=== PATIENT | female | born 1980 | race African-American/Black ===

== ENCOUNTER 2017-02-19 17:25 | Emergency (ER) | payer MEDICARE, MEDICAID ==
[~2017-02-19] VITALS: Ht 160 cm; Wt 99.8 kg
[~2017-02-19 17:25] MED LIST: BUPR200T2; CITA-36; LAMO100T4; PALI6TAB3
[2017-02-19] MEDS ORDERED: SODIUM CHLORIDE 0.9% 1,000 ML IV ONE (18:45)
[2017-02-19] MEDS ORDERED: LORazepam 0.5 MG TAB PO ONE (21:15)
[2017-02-19 22:04] LABS: Basophils # (auto) 0 uL; Basophils % (auto) 0.3 % (0.0-2.0); DEFINITIVE VIEW TRANSMISSION; Eosinophils # (auto) 0.1 uL; Eosinophils % (auto) 0.8 % (0.0-7.0); Hematocrit 31.1 % (36.0-46.0); Hemoglobin 10.2 g/dL (12.2-16.2); Lymphocytes # (auto) 2.5 uL; Lymphocytes % (auto) 35.8 % (10.0-50.0); Mean Corpuscular Hgb Conc. 32.7 g/dL (32.0-36.0); Mean Corpuscular Volume 76.5 fL (80.0-100.0); Mean Platelet Volume 8.1 fL (7.4-10.4); Monocytes # (auto) 0.6 uL; Monocytes % (auto) 8.3 % (0.0-12.0); Neutrophils # (auto) 3.9 uL; Neutrophils % (auto) 54.8 % (37.0-80.0); Platelet Count (auto) 337 10^3/uL (140-450); Red Cell Distribution Width 16.9 % (11.6-16.0); White Blood Cell 7.1 10^3/uL (4.4-10.8)
[2017-02-19 22:21] LABS: Albumin 3.4 g/dL (3.4-5.0); BUN/Creatinine Ratio 9.3; Bilirubin, Total 0.5 mg/dL (0.2-1.0); Calcium 8.2 mg/dL (8.5-10.1); Total Protein 7.6 g/dL (6.4-8.2)
[2017-02-19] MEDS ORDERED: POTASSIUM CHL 10% (20 MEQ/15ML) ORAL SOLN PO ONE (22:45)
[2017-02-19] MEDS ORDERED: POTASSIUM CHL 20MEQ/100ML 100 ML IV ONE (23:45)
[2017-02-20] MEDS ORDERED: POTASSIUM CHL 10% (20 MEQ/15ML) ORAL SOLN PO ONE (01:00)
[2017-02-20 01:59] VITALS: BP 107/69
== END 2017-02-20 05:03 | disposition home or self-care (01) ==
LOC: EDBD 17:25 → EDSEX 17:25 → ER 17:28
DX: E87.6 Hypokalemia (principal); F31.9 Bipolar disorder, unspecified; R42 Dizziness and giddiness; Z79.899 Other long term (current) drug therapy
CPT/HCPCS: 36415; 70450; 80053; 80320; 84484; 84702; 85025; 93005; 94761; 96365; 96366; 99285; J3480; J7030

== ENCOUNTER 2017-02-22 12:03 | Observation (INO) | payer MEDICARE, MEDICAID ==
[~2017-02-22] VITALS: Ht 167.6 cm; Wt 99.8 kg
[2017-02-22 13:38] LABS: Urine Bilirubin Negative (Negative); Urine Blood 2+ /uL (Negative); Urine Color Yellow (Yellow); Urine Glucose Normal (Normal); Urine Ketone Negative (Negative); Urine Mucus FEW (None Seen); Urine Nitrite Negative (Negative); Urine RBC 9 /hpf (0 - 4); Urine Squamous Epithelial Cell FEW /hpf (<5); Urine pH 6.5 (5.0-8.0)
[2017-02-22] MEDS ORDERED: ALPRAZolam 0.5 MG TAB PO ONE (13:45)
[2017-02-22 15:19] LABS: Basophils # (auto) 0 uL; Basophils % (auto) 0.5 % (0.0-2.0); DEFINITIVE VIEW TRANSMISSION; Eosinophils # (auto) 0 uL; Eosinophils % (auto) 0.8 % (0.0-7.0); Hematocrit 31.5 % (36.0-46.0); Hemoglobin 10.5 g/dL (12.2-16.2); Lymphocytes % (auto) 36.4 % (10.0-50.0); Mean Corpuscular Hemoglobin 25.3 pg (28.0-32.0); Mean Corpuscular Hgb Conc. 33.3 g/dL (32.0-36.0); Mean Corpuscular Volume 75.8 fL (80.0-100.0); Mean Platelet Volume 8.6 fL (7.4-10.4); Monocytes # (auto) 0.4 uL; Monocytes % (auto) 6.4 % (0.0-12.0); Neutrophils # (auto) 3.1 uL; Neutrophils % (auto) 55.9 % (37.0-80.0); Platelet Count (auto) 302 10^3/uL (140-450); Red Cell Distribution Width 16.7 % (11.6-16.0); White Blood Cell 5.6 10^3/uL (4.4-10.8)
[2017-02-22 15:28] LABS: INR 1.06 (0.9-1.15); Partial Thromboplastin Time 25.4 sec (22.64-33.71); Prothrombin Time 11.6 sec (9.37-12.3)
[2017-02-22 15:32] LABS: Albumin 3.5 g/dL (3.4-5.0); BUN/Creatinine Ratio 10.8; Bilirubin, Total 0.4 mg/dL (0.2-1.0); Calcium 8.5 mg/dL (8.5-10.1); Magnesium 2.3 mg/dL (1.6-2.6); Potassium 3.2 mmol/L (3.5-5.1); Total Protein 7.7 g/dL (6.4-8.2)
[2017-02-22] MEDS ORDERED: POTASSIUM CHL 20 Meq TABLET PO ONE (16:45)
[2017-02-22 18:31] LABS: Platelet Estimate Adequate
[2017-02-22 18:32] LABS: Anisocytosis Moderate; Hypochromia Slight
[2017-02-22] MEDS ORDERED: ALUM & MAG HYDROX-SIMETH LIQ(MAALOX) 30 ML PO ONE (19:00)
[2017-02-22 19:34] VITALS: BP 108/70
== END 2017-02-22 19:39 | disposition short-term general hospital (02) | DRG 880 ==
LOC: EDBD 12:03 → ER 12:07 → OVERFLOW 12:25 → ER 19:36
PROVIDERS: ADMIT Family Medicine; ATTEND Family Medicine
DX: R45.851 Suicidal ideations (principal); N39.0 Urinary tract infection, site not specified; N30.00 Acute cystitis without hematuria; F32.9 Major depressive disorder, single episode, unspecified; F41.9 Anxiety disorder, unspecified; F31.9 Bipolar disorder, unspecified; F20.9 Schizophrenia, unspecified; E87.6 Hypokalemia
CPT/HCPCS: 36415; 71010; 80053; 80307; 81001; 81025; 83735; 85025; 85610; 85730; 99285; G0378

== ENCOUNTER 2017-03-18 12:25 | Emergency (ER) | payer MEDICARE, MEDICAID ==
[~2017-03-18] VITALS: Ht 167.6 cm; Wt 90.7 kg
[2017-03-18] MEDS ORDERED: AMMONIA 0.33 ML INHALANT IN ONE (12:31)
[2017-03-18 12:41] VITALS: BP 119/72
[2017-03-18] MEDS ORDERED: SODIUM CHLORIDE 0.9% 500 ML IV ONE (13:34)
[2017-03-18] MEDS ORDERED: ONDANSETRON HCL 4 MG/2 ML VIAL IV ONE (13:45)
[2017-03-18] MEDS ORDERED: KETOROLAC TROMETH 30 MG/ML 1ML VIAL IV ONE (13:45)
== END 2017-03-18 14:20 | disposition home or self-care (01) ==
LOC: EDBD 12:25 → ER 12:25
DX: R53.1 Weakness (principal); M19.90 Unspecified osteoarthritis, unspecified site; Z79.899 Other long term (current) drug therapy
CPT/HCPCS: 94761

== ENCOUNTER 2017-03-20 13:13 | Emergency (ER) | payer MEDICARE, MEDICAID ==
[~2017-03-20] VITALS: Ht 160 cm; Wt 99.8 kg
[2017-03-20 13:30] VITALS: BP 125/75
[2017-03-20] MEDS ORDERED: KETOROLAC TROMETH 60MG/2ML VIAL IM ONE (13:45)
== END 2017-03-20 16:00 | disposition home or self-care (01) ==
LOC: EDBD 13:13 → ER 13:13
DX: S16.1XXA Strain of muscle, fascia and tendon at neck level, initial encounter (principal); R51 Headache; M79.671 Pain in right foot; F20.9 Schizophrenia, unspecified; M19.90 Unspecified osteoarthritis, unspecified site; F31.9 Bipolar disorder, unspecified; V98.8XXA Other specified transport accidents, initial encounter; Y93.89 Activity, other specified; Y92.89 Other specified places as the place of occurrence of the external cause; Y99.8 Other external cause status
CPT/HCPCS: 70450; 72125; 73630; 96372; 99284; J1885

== ENCOUNTER 2017-04-06 22:05 | Emergency (ER) | payer MEDICARE, MEDICAID ==
[~2017-04-06] VITALS: Ht 165.1 cm; Wt 86.2 kg
[2017-04-06 22:47] LABS: Basophils # (auto) 0 uL; Basophils % (auto) 0.5 % (0.0-2.0); CONDITION Y; DEFINITIVE SEE PRINTOUT; Eosinophils # (auto) 0.1 uL; Eosinophils % (auto) 1.4 % (0.0-7.0); Hematocrit 33.6 % (36.0-46.0); Lymphocytes # (auto) 3.1 uL; Lymphocytes % (auto) 36.8 % (10.0-50.0); Mean Corpuscular Hemoglobin 25.2 pg (28.0-32.0); Mean Corpuscular Hgb Conc. 32.8 g/dL (32.0-36.0); Mean Corpuscular Volume 76.8 fL (80.0-100.0); Monocytes # (auto) 0.8 uL; Monocytes % (auto) 9.7 % (0.0-12.0); Neutrophils # (auto) 4.4 uL; Neutrophils % (auto) 51.6 % (37.0-80.0); Platelet Count (auto) 320 10^3/uL (140-450); Red Cell Distribution Width 18.5 % (11.6-16.0); White Blood Cell 8.4 10^3/uL (4.4-10.8)
[2017-04-06 23:08] LABS: Albumin 3.4 g/dL (3.4-5.0); Anion Gap 9 (5-15); Aspartate Aminotransferase 12 U/L (15-37); Blood Urea Nitrogen 7 mg/dL (7-18); Calcium 8.4 mg/dL (8.5-10.1); Carbon Dioxide 23 mmol/L (21-32); Chloride 111 mmol/L (98-107); GFR African American 123 mL/min; GFR Non-African American 102 mL/min; Glucose 89 mg/dL (74-106); Magnesium 1.9 mg/dL (1.6-2.6); Potassium 3.7 mmol/L (3.5-5.1); Salicylate < 1.7 mg/dL (2.8-20.0); Sodium 143 mmol/L (136-145)
[2017-04-06 23:10] LABS: Acetaminophen < 2.0 ug/mL (10-30)
[2017-04-06 23:13] LABS: Alkaline Phosphatase 82 U/L (45-117); Bilirubin, Total 0.2 mg/dL (0.2-1.0); Total Protein 7.6 g/dL (6.4-8.2)
[2017-04-07 01:00] VITALS: BP 118/74
== END 2017-04-07 02:41 | disposition home or self-care (01) ==
LOC: EDBD 22:05 → EDUNIT# 22:05 → EDSEX 22:05 → ER 22:05
DX: B37.3 Candidiasis of vulva and vagina (principal); M19.90 Unspecified osteoarthritis, unspecified site; Z79.899 Other long term (current) drug therapy
CPT/HCPCS: 36415; 70450; 71010; 80053; 80320; 80329; 83735; 84484; 84702; 85025; 87070; 93005

== ENCOUNTER 2017-04-11 20:33 | Emergency (ER) | payer MEDICARE, MEDICAID ==
[~2017-04-11] VITALS: Ht 170.2 cm; Wt 99.8 kg
[2017-04-11] MEDS ORDERED: ACETAMINOPHEN 325 MG TAB PO ONE (21:15)
[2017-04-11 21:16] VITALS: BP 124/87
== END 2017-04-11 21:17 | disposition home or self-care (01) ==
LOC: EDBD 20:33 → ER 20:41
DX: G89.4 Chronic pain syndrome (principal); F31.9 Bipolar disorder, unspecified; F20.9 Schizophrenia, unspecified; M19.90 Unspecified osteoarthritis, unspecified site

== ENCOUNTER 2017-07-23 10:45 | Emergency (ER) | payer MEDICARE, MEDICAID ==
[~2017-07-23] VITALS: Ht 160 cm; Wt 97.1 kg
[~2017-07-23 10:45] MED LIST changes: -BUPR200T2; -CITA-36; +FERR-7 PO; +IBUP800T24 PO; -LAMO100T4; -PALI6TAB3; +RISP0.5T45 PO
[2017-07-23 11:34] LABS: Basophils # (auto) 0 uL; Eosinophils # (auto) 0 uL; Hemoglobin 11.4 g/dL (12.2-16.2); Lymphocytes # (auto) 1.6 uL; Monocytes # (auto) 0.4 uL; Monocytes % (auto) 5.3 % (0.0-12.0)
[2017-07-23 11:36] LABS: Basophils % (auto) 0.6 % (0.0-2.0); Eosinophils % (auto) 0.1 % (0.0-7.0); Hematocrit 35.3 % (36.0-46.0); Lymphocytes % (auto) 20.1 % (10.0-50.0); Mean Corpuscular Hemoglobin 25.5 pg (28.0-32.0); Mean Corpuscular Hgb Conc. 32.3 g/dL (32.0-36.0); Mean Corpuscular Volume 78.8 fL (80.0-100.0); Neutrophils # (auto) 5.9 uL; Neutrophils % (auto) 73.9 % (37.0-80.0); Nucleated Red Blood Cells % 0.2 %; Platelet Count (auto) 252 10^3/uL (140-450); Red Blood Cells 4.49 10^6/uL (4.0-5.20); Red Cell Distribution Width 18.8 % (11.8-14.3); White Blood Cell 7.9 10^3/uL (4.4-10.8)
[2017-07-23 11:53] LABS: Albumin 3.8 g/dL (3.4-5.0); Bilirubin, Total 0.2 mg/dL (0.2-1.0); Calcium 8.8 mg/dL (8.5-10.1); Potassium 3.6 mmol/L (3.5-5.1)
[2017-07-23 12:31] LABS: Salicylate < 1.7 mg/dL (2.8-20.0)
[2017-07-23 12:32] LABS: Acetaminophen < 2.0 ug/mL (10-30)
[2017-07-23] MEDS ORDERED: SODIUM CHLORIDE 0.9% 1,000 ML IVB ONE (13:55)
[2017-07-23 14:50] LABS: Urine Bacteria NONE SEEN /hpf (None Seen); Urine Blood Negative /uL (Negative); Urine Mucus FEW (None Seen); Urine Specific Gravity 1.029 (1.001-1.035); Urine WBC 3 /hpf (0 - 5)
[2017-07-23 15:00] LABS: Alcohol, Urine < 3.0 mg/dL (0-5); Amphetamine Screen, Urine NEGATIVE (NEGATIVE); Barbiturate Scree,Urine NEGATIVE (NEGATIVE); Benzodiazephine Screen, Urine NEGATIVE (NEGATIVE); Cannabinoid Screen, Urine NEGATIVE (NEGATIVE); Cocaine Screen, Urine NEGATIVE (NEGATIVE); Opiate Scree,Urine NEGATIVE (NEGATIVE); Phencyclidine Screen, Urine NEGATIVE (NEGATIVE)
[2017-07-23] MEDS ORDERED: risperiDONE 1 MG TAB PO ONE (17:15)
[2017-07-23 17:50] VITALS: BP 120/72
== END 2017-07-23 18:20 | disposition home or self-care (01) ==
LOC: ER 10:45 → EDBD 10:45 → ER 18:20
DX: F31.9 Bipolar disorder, unspecified (principal); F20.9 Schizophrenia, unspecified; F41.9 Anxiety disorder, unspecified; M19.90 Unspecified osteoarthritis, unspecified site
CPT/HCPCS: 36415; 71020; 80053; 80307; 80329; 81001; 81025; 83735; 84443; 85025; 96360; 96361; 99285; J7030